=== PATIENT | female | born 1995 | race Two or more races ===

== ENCOUNTER 2024-01-25 14:07 | Emergency (ER) | payer BC ==
[~2024-01-25] VITALS: Ht 170.2 cm; Wt 86.2 kg
[2024-01-25] MEDS ORDERED: CORTISPORIN EAR10 M1 OPHT (17:06)
[2024-01-25] MEDS ORDERED: IBU600 MG PO (17:06)
== END 2024-01-25 17:11 | disposition home or self-care (01) ==
LOC: ER 14:08
DX: H68.109 Unspecified obstruction of Eustachian tube, unspecified ear (principal); T16.1XXA Foreign body in right ear, initial encounter; Z88.2 Allergy status to sulfonamides